=== PATIENT | female | born 1975 | race Caucasian/White ===

== ENCOUNTER 2017-11-27 11:09 | Emergency (ER) | payer OTHER ==
[2017-11-27 11:24] VITALS: BP 115/80; PULSE 100; TEMP 98; BMI 25.4
--- NOTE | 2017-11-27 11:52 | PDOC ---
History of Present Illness - General Chief Complaint: Pain Stated Complaint: CHEST PAIN Time Seen by Provider: 11/27/17 11:35 - History of Present Illness Initial Comments: 42-year-old female with past medical history significant for hypertension. She is under the care of a investor relations manager where she gets yearly echocardiogram presents for evaluation of chest pain since this morning. She describes her chest pain is sharp exacerbated with motion minimally relieved with rest no radiation of symptoms. No other associated symptoms. 11/27/17 11:48 Past History - Past Medical History Allergies/Adverse Reactions: Allergies Allergy/AdvReac Type Severity Reaction Status Date / Time No Known Allergies Allergy Verified 11/27/17 11:19 Home Medications: Ambulatory Orders NK [No Known Home Medication] 11/27/17 Cardiac Disorders: Yes (MURMUR) COPD: No HTN: Yes (NOT ON MEDS, CONTROLED.) Psychiatric Problems: Yes (ANXEITY) - Surgical History Abdominal Surgery: Yes (TUBLA LIGATION) - Suicide/Smoking/Psychosocial Hx Smoking History: Never smoked Have you smoked in the past 12 months: No Information on smoking cessation initiated: No Hx Alcohol Use: No Drug/Substance Use Hx: No Substance Use Type: None Review of Systems - Review of Systems Cardiac (ROS): Yes: See HPI, Chest Pain All Other Systems: Reviewed and Negative *Physical Exam - Vital Signs Last Vital Signs Temp Pulse Resp BP Pulse Ox 98.0 F 100 H 18 115/80 100 11/27/17 11:20 11/27/17 11:20 11/27/17 11:20 11/27/17 11:20 11/27/17 11:20 - Physical Exam Comments: GENERAL: The patient is awake, alert, and fully oriented, in no acute distress. HEAD: Normal with no signs of trauma. EYES: Pupils equal, round and reactive to light, extraocular movements intact, sclera anicteric, conjunctiva clear. ENT: Ears normal, nares patent, oropharynx clear without exudates. Moist mucous membranes. NECK: Normal range of motion, supple without lymphadenopathy, JVD, or masses. LUNGS: Breath sounds equal, clear to auscultation bilaterally. No wheezes, and no crackles. HEART: Regular rate and rhythm, normal S1 and S2 without murmur, rub or gallop. ABDOMEN: Soft, nontender, normoactive bowel sounds. No guarding, no rebound. No masses. EXTREMITIES: Normal range of motion, no edema. No clubbing or cyanosis. No cords, erythema, or tenderness. NEUROLOGICAL: Cranial nerves II through XII grossly intact. Normal speech, normal gait. PSYCH: Normal mood, normal affect. SKIN: Warm, Dry, normal turgor, no rashes or lesions noted. 11/27/17 11:49 Medical Decision Making - Medical Decision Making This is a 42-year-old female with a past medical history significant for hypertension. She states she has a heart murmur. I do not hear the murmur on my examination today. However she is in the care of a investor relations manager where she gets yearly echocardiograms. She does have T-wave inversions on her EKG and she is tachycardic. I believe this is costochondritis however and a 42-year-old female with her history she'll cardiac workup is warranted. 11/27/17 11:49 *DC/Admit/Observation/Transfer Diagnosis at time of Disposition: Chest pain - Referrals Referrals: Raul Damian MD [Primary Care Provider] - - Patient Instructions - Post Discharge Activity
--- NOTE | 2017-11-27 12:01 | PDOC ---
*Physical Exam - Vital Signs Last Vital Signs Temp Pulse Resp BP Pulse Ox 98.0 F 100 H 18 115/80 100 11/27/17 11:20 11/27/17 11:20 11/27/17 11:20 11/27/17 11:20 11/27/17 11:20 - Physical Exam General Appearance: Yes: Appropriately Dressed. No: Apparent Distress HEENT: positive: Normal Voice Neck: positive: Supple Respiratory/Chest: positive: Lungs Clear, Normal Breath Sounds. negative: Respiratory Distress Cardiovascular: positive: Regular Rate, S1, S2 Extremity: positive: Normal Inspection Integumentary: positive: Dry, Warm Neurologic: positive: Fully Oriented, Alert, Normal Mood/Affect Heart Score/ECG Review - History History: Slightly suspicious - Electrocardiogram EKG: Normal - Age Age: </= 45 - Risk Factors Risk Factors Heart Score: Yes Hx Hypertension Based on the list above the patient has:: 1-2 risk factors - Troponin Troponin: </= normal limit - Score Heart Score - Total: 1 - ECG Intrepretation Comment:: 11/27/17 12:02 EKG with sinus tach to 101 with T-wave inversion in lead 111 only, otherwise unremarkable EKG. No old for comparison ED Treatment Course - LABORATORY CBC & Chemistry Diagram: 11/27/17 12:10 11/27/17 12:10 Medical Decision Making - Medical Decision Making 11/27/17 11:57 Pt upgrade from FT and signed out to me by COURTNEY Dotson. Patient is a 41-year-old female with history of hypertension, no longer on medication, ? heart murmur, neg exercise stress test in 12/31 on records at [facility] , here with chest pain this a.m. As per COURTNEY Dotson, there is a reproducible factor. EKG did show nonspecific TWI, no old to compare. R/o ACS, no obvious RF for dvt/pe but unable to PERC out given HR of 100 11/27/17 12:18 On re-assessment, patient states pain started shortly after lifting weights yesterday. Pain located to L chest, described as sharp, does not radiate and worse with movement of left upper extremity. No diaphoresis, shortness of breath, nausea, vomiting. States she has outside cardio and gets yearly echoes because of her heart murmur and had unremarkable echo last year. No recent travel and no h/o DVT/PE. Pt remains stable w/ +ttp to L upper chest. No obvious murmurs on auscultation. Given low heart score, will rule out with serial troponins and dc if normal 11/27/17 18:43 Second troponin negative. Patient pain-free in ED and stable for discharge with PMD follow-up as needed *DC/Admit/Observation/Transfer Diagnosis at time of Disposition: Chest pain Qualifiers: Chest pain type: unspecified Qualified Code(s): R07.9 - Chest pain, unspecified - Referrals Referrals: Raul Damian MD [Primary Care Provider] - - Patient Instructions Printed Discharge Instructions: DI for Atypical Chest Pain Additional Instructions: The cause of your chest pain in is most likely muscular but if it persists, please return or follow up with your alarm adjuster Take tylenol for pain as needed - Post Discharge Activity
[2017-11-27 12:21] LABS: BASO % 0.6 % (0-2.0); EOS % 0.9 % (0-4.5); HEMOGLOBIN 11.7 GM/dL (10.7-15.3); LYMPH % 11.7 % (8-40); MCH 30.1 pg (25.7-33.7); MCHC 33.5 g/dl (32.0-36.0); MEAN CELL VOLUME 89.8 fl (80-96); MEAN PLT VOLUME 8.4 fl (7.5-11.1); MONO % 5.8 % (3.8-10.2); PLATELET COUNT 288 K/MM3 (134-434); RDW 13.8 % (11.6-15.6); WHITE BLOOD COUNT 5.6 K/mm3 (4.0-10.0)
[2017-11-27 12:49] LABS: ALBUMIN 3.7 g/dl (3.4-5.0); ANION GAP 7 (8-16); BLOOD UREA NITROGEN 14 mg/dL (7-18); CALCIUM 8.6 mg/dL (8.5-10.1); CHLORIDE 106 mmol/L (98-107); CO2 27 mmol/L (21-32); GLUCOSE,RANDOM 102 mg/dL (74-106); POTASSIUM 3.9 mmol/L (3.5-5.1); SODIUM 140 mmol/L (136-145)
[2017-11-27 13:14] LABS: ALK PHOS 56 U/L (45-117); BILIRUBIN,TOTAL 0.2 mg/dL (0.2-1.0); CREATININE 0.6 mg/dL (0.55-1.02); SGOT/AST 17 U/L (15-37); SGPT/ALT 23 U/L (12-78); TOT PROT 6.8 g/dl (6.4-8.2)
--- NOTE | 2017-11-29 15:37 | EKG ---
Test Reason : Blood Pressure : / mmHG Vent. Rate : 101 BPM Atrial Rate : 101 BPM P-R Int : 116 ms QRS Dur : 084 ms QT Int : 344 ms P-R-T Axes : 023 -11 -01 degrees QTc Int : 446 ms SINUS TACHYCARDIA NONSPECIFIC ST ABNORMALITY ABNORMAL ECG NO PREVIOUS ECGS AVAILABLE Confirmed by JYOTI DELACRUZ MD ([id number]) on 11/29/2017 3:37:33 PM Referred By: Confirmed By:JYOTI DELACRUZ MD
== END 2017-11-27 21:09 | disposition home or self-care (01) ==
LOC: JER 11:09 → JERFT 11:09 → JER 21:09
DX: R07.9 Chest pain, unspecified (principal); I10 Essential (primary) hypertension; F41.9 Anxiety disorder, unspecified
CPT/HCPCS: 36415; 71045-TC-FY; 80053; 84484; 84703; 85025; 93005; 93010; 99283-25

== ENCOUNTER 2025-01-13 05:42 | Emergency (ER) | payer OTHER ==
[2025-01-13 05:48] VITALS: BMI 27.1
[2025-01-13] MEDS ORDERED: ACETAMINOPHEN 325 MG TABLET (FP) ONE (06:17)
[2025-01-13] MEDS: ACETAMINOPHEN 500 MG TABLET (FP) PO ONE (06:21)
[2025-01-13 09:12] LABS: URINE COLOR RED
[2025-01-13 09:13] LABS: URINE APPEARANCE CLOUDY; URINE BILIRUBIN 3+ (NEGATIVE); URINE GLUCOSE (UA) NEGATIVE (NEGATIVE)
[2025-01-13 09:15] LABS: URINE PROTEIN 3+ (NEGATIVE); URINE UROBILINOGEN 0.2 mg/dL (0.2-1.0)
[2025-01-13 09:16] LABS: URINE RBC 20301 /uL (0-23.9); URINE WBC 161 /uL (0-25.8)
[2025-01-13 09:17] LABS: EPI CELLS 141 /uL (0-25.1); HYALINE CASTS 33 /uL (0-3.1)
[2025-01-13 09:18] LABS: URINE BACTERIA 96 /uL (0-1359)
[2025-01-13 09:31] VITALS: BP 123/76; PULSE 60; RESP 16; TEMP 98.3
== END 2025-01-13 09:32 | disposition home or self-care (01) ==
LOC: JER 05:42
DX: N30.01 Acute cystitis with hematuria (principal); R30.0 Dysuria; R39.15 Urgency of urination; R35.0 Frequency of micturition; R10.30 Lower abdominal pain, unspecified; R11.0 Nausea
CPT/HCPCS: 81003; 87086; 99283-25